=== PATIENT | male | born 1985 | race Caucasian/White ===

== ENCOUNTER 2021-01-10 15:18 | Emergency (ER) | payer OTHER, SELFPAY ==
[2021-01-10 15:30] VITALS: BP 147/71; PULSE 82; RESP 20; TEMP 36.9; O2SAT 98
--- NOTE | 2021-01-10 16:25 | ED.GENADULT ---
HPI - General Adult General Chief complaint: Abdominal Pain Stated complaint: Abdominal pain Time Seen by Provider: 01/10/21 15:50 Source: patient and RN notes reviewed Mode of arrival: ambulatory Limitations: no limitations History of Present Illness HPI narrative: 35 year old male who presents to [facility] care with complaints of upper epigastric abdominal pain which started this morning. Patient denies any vomiting or diarrhea, states that he has history of GERD but has not been on any medication for awhile. Patient states that pain is throbbing and rates it a 6/10, asked for a GI cocktail when he arrived in clinic, states that he has had to have those in the past when his GERD flares. Patient states that he did not eat any supper last night. Patient admits to alcohol and tobacco use. MD complaint: epigastric pain Onset (ago): day(s) (1) Location: abdomen (epigastric) Radiation: non-radiation Severity: moderate and similar to prior episodes Severity scale (1-10): 6 Quality: aching Pain Consistency: constant Relieving factors: none Associated symptoms: denies other symptoms Treatments prior to arrival: other (milk) Related Data Allergies Allergy/AdvReac Type Severity Reaction Status Date / Time ciprofloxacin [From Cipro] Allergy Intermediate Hives Verified 01/10/21 16:05 Review of Systems Review of Systems: Narrative: CONSTITUTIONAL: Denies fever, chills, or sweats. EYES: Denies visual changes, redness, or discharge. ENT: Denies rhinorrhea, congestion, sore throat, or otalgia. CARDIOVASCULAR: Denies chest pain, palpitations, or edema. RESPIRATORY: Denies cough or dyspnea. GASTROINTESTINAL: Positive for epigastric abdominal pain, no nausea, vomiting, or diarrhea. GENITOURINARY: Denies dysuria or hematuria. SKIN: Denies rash or itching. MUSCULOSKELETAL: Denies back pain, joint pain, or myalgia. NEUROLOGIC: Denies headache, numbness, or weakness. PSYCHIATRIC: Denies anxiety or depression. All systems reviewed & are unremarkable except as noted in HPI and below PMFSH Past Medical History Medical History (Updated 01/15/21 @ 10:45 by Leona Ordonez NP) Asthma as child GERD (gastroesophageal reflux disease) Surgical History Surgical History (Updated 01/15/21 @ 10:41 by Leona L. Mery, [employer]) History of placement of ear tubes History of tonsillectomy and adenoidectomy Family History Family History (Updated 01/15/21 @ 10:41 by Leona Ordonez NP) Other No significant family history Social History Social History (Updated 01/15/21 @ 10:39 by Leona Ordonez NP) Smoking status: Current every day smoker Tobacco type: cigarettes Alcohol intake: current Alcohol use details: Social Substance use: never Living arrangements: with family Gender identity (if verbalized by the patient): Male Comments At time of signature, agree with nursing past medical, surgical, social and family history. There is no relevant family history pertinent to the presenting complaint Exam Narrative: Exam Narrative: GENERAL: Well-appearing, well-nourished, and in no acute distress. HEAD: Normocephalic, atraumatic. EYES: PERRLA and EOMI. ENT: Nares clear, no rhinorrhea or epistaxis. Mucous membranes moist. NECK: Supple. No Lymphadenopathy CHEST: Clear to auscultation. No respiratory distress. HEART: Regular rate and rhythm. No murmur heard. Normal peripheral pulses. ABDOMEN: Soft, tender to upper epigastric, nondistended, normal active bowel sounds, no radiation of pain, no emesis or any evidence of blood in stool. EXTREMITIES: Normal range of motion. No edema. SKIN: Warm, dry, no rash. NEURO: No focal deficits. Alert and oriented x3. Course Vital Signs Vital signs: Vital Signs Temperature 36.9 C 01/10/21 15:30 Pulse Rate 82 01/10/21 15:30 Respiratory Rate 20 01/10/21 15:30 Blood Pressure 147/71 H 01/10/21 15:30 Pulse Oximetry 98 01/10/21 15:30 Temperature 36.9 C 01/10/21 15:30 Pul
== END 2021-01-10 16:50 | disposition home or self-care (01) ==
PROVIDERS: Emergency Provider Registered Nurse
DX: K21.9 Gastro-esophageal reflux disease without esophagitis (principal); F17.210 Nicotine dependence, cigarettes, uncomplicated
CPT/HCPCS: 99213; G0463

== ENCOUNTER 2023-03-24 16:31 | Emergency (ER) | payer OTHER, SELFPAY ==
[2023-03-24 16:43] VITALS: BP 140/84; PULSE 71; RESP 18; TEMP 36.4; O2SAT 98
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
== END 2023-03-24 17:10 | disposition home or self-care (01) ==
PROVIDERS: Emergency Provider Nurse Practitioner Family
DX: S29.012A Strain of muscle and tendon of back wall of thorax, initial encounter (principal); S46.912A Strain of unspecified muscle, fascia and tendon at shoulder and upper arm level, left arm, initial encounter; V48.5XXA Car driver injured in noncollision transport accident in traffic accident, initial encounter; F17.210 Nicotine dependence, cigarettes, uncomplicated; J45.909 Unspecified asthma, uncomplicated; K21.9 Gastro-esophageal reflux disease without esophagitis
CPT/HCPCS: 99213; G0463